=== PATIENT | female | born 1975 | race Two or more races ===

== ENCOUNTER 2022-06-14 18:24 | Emergency (ER) | payer OTHER ==
[~2022-06-14] VITALS: Ht 162.6 cm; Wt 76.2 kg
[~2022-06-14 18:24] MED LIST: CIMBALTA PO; CYMBALTA30 MG PO; LAMICTAL100 M1 PO; LAMICTAL100 MG PO; NABUMETONE500 MG PO; PERCOCET 5/3251 TAB PO
[2022-06-14] MEDS ORDERED: COZAAR25 MG PO (19:10)
== END 2022-06-15 01:06 | disposition home or self-care (01) ==
LOC: ER 18:24
DX: I10 Essential (primary) hypertension (principal)

== ENCOUNTER 2023-06-06 12:35 | Emergency (ER) | payer OTHER ==
[~2023-06-06] VITALS: Ht 162.6 cm; Wt 65.8 kg
[~2023-06-06 12:35] MED LIST changes: +COZAAR25 MG PO
[2023-06-06] MEDS ORDERED: LOSARTAN-HCTZ1 EAC2 PO (13:08)
[2023-06-06] MEDS ORDERED: LAMOTRIGINE100 MG (13:09)
[2023-06-06] MEDS ORDERED: NORFLEX100MG PO (18:46)
== END 2023-06-06 19:57 | disposition home or self-care (01) ==
LOC: ER 12:36
DX: R07.89 Other chest pain (principal); R53.81 Other malaise; I10 Essential (primary) hypertension

== ENCOUNTER 2023-06-15 13:54 | Emergency (ER) | payer OTHER ==
[~2023-06-15] VITALS: Ht 162.6 cm; Wt 74.8 kg
[~2023-06-15 13:54] MED LIST changes: +LAMOTRIGINE100 MG; +LOSARTAN-HCTZ1 EAC2 PO; +NORFLEX100MG PO
[2023-06-15 20:27] LABS: HEMATOCRIT 38.5 % (36.0-45.00); HEMOGLOBIN 13.1 g/dL (12.0-15.00); MEAN CELL VOLUME 96.4 fL (80.00-100.00); MEAN CORPUSCULAR HEMOGLOBIN 32.7 pg (27.00-32.0); PLATELET COUNT 280 K/uL (150-450); RED BLOOD COUNT 3.99 M/uL (4.00-6.00); RED CELL DISTRIBUTION WIDTH 12.8 % (11.5-14.5)
== END 2023-06-15 23:52 | disposition home or self-care (01) ==
LOC: ER 13:55
PROVIDERS: General Practice
DX: M94.0 Chondrocostal junction syndrome [Tietze] (principal); F41.9 Anxiety disorder, unspecified; I10 Essential (primary) hypertension

== ENCOUNTER 2025-03-28 09:51 | Emergency (ER) | payer OTHER ==
[~2025-03-28] VITALS: Ht 162.6 cm; Wt 74.8 kg
[2025-03-28] MEDS ORDERED: DULOXETINE HCL30 MG PO (10:06)
[2025-03-28] MEDS ORDERED: KETOROLAC TROMETHAMINE 30 MG VIAL IU ONE (10:45)
[2025-03-28] MEDS ORDERED: DEXAMETHASONE SODIUM PHOSP/PF 10 MG/ML VIAL IV ONE (10:45)
[2025-03-28] MEDS ORDERED: ORPHENADRINE CITRATE 30 MG/ML AMPUL IV ONE (10:45)
[2025-03-28] MEDS ORDERED: 0.9 % SODIUM CHLORIDE 1,000 ML IV ONE (10:45)
[2025-03-28 13:21] LABS: BASO % 0.2 % (0.1-1.2); EOS # 0.00 (0.04-0.54); EOS % 0.0 % (0.7-7.0); LYMPH # 1.71 (1.18-3.74); LYMPH % 13.2 % (19.3-53.1); MEAN PLATELET VOLUME 10.80 fl (9.4-12.4); MONO # 0.88 (0.24-0.82); MONO % 6.8 % (4.7-12.5); NEUT # 10.27 (1.56-6.13); NEUT % 79.3 % (34.0-71.1); RED CELL DISTRIBUTION WIDTH 12.1 % (11.6-14.4)
[2025-03-28 13:43] LABS: ALT/SGPT 20.0 U/L (12-78); AST/SGOT 11.0 U/L (15-37); BILIRUBIN TOTAL 0.49 mg/dL (0.3-1.2); BUN CREA RATIO 14.0 (7.0-25.0); CREATININE SERUM 0.64 mg/dL (0.55-1.02); GFR 99.47; GLOBULINA 3.5 G/DL (2.4-3.5); GLUCOSE FASTING 91.0 mg/dL (65-100); OSMOLALITY SERUM 281.0 MOSM/KG (275-295)
[2025-03-28 15:36] LABS: URINE APPEARANCE Cloudy; URINE BILIRRUBIN Negative (NEGATIVE); URINE BLOOD Negative; URINE COLOR Yellow; URINE GLUCOSE Negative (NEGATIVE); URINE KETONE Negative (NEGATIVE); URINE LEUKOCYTE Large; URINE NITRATE Negative; URINE PROTEIN Trace (NEGATIVE); URINE UROBILINOGEN 1.0 E.U./dl
[2025-03-28 15:41] LABS: URINE BACTERIA 5150.2 uL (0.0-1933); URINE CAST 2.19 uL (0.0-1.40); URINE EPITHELIAL CELLS 69.9 uL (0.0-38.8); URINE RBC 10.4 uL (0.0-20.8); URINE WBC 533.2 uL (0.0-23.2)
[2025-03-28 16:36] LABS: TYPE CELLS SQUAMOUS
[2025-03-28] MEDS ORDERED: CEFTRIAXONE SODIUM 1,000 MG VIAL IV ONE (18:00)
[2025-03-28] MEDS ORDERED: PEPCID AC20 MG PO (20:06)
[2025-03-28] MEDS ORDERED: MACROBID 100 M100 MG PO (20:06)
[2025-03-28] MEDS ORDERED: IBU600 MG PO (20:06)
[2025-03-28] MEDS ORDERED: PYRIDIUM200 MG PO (20:06)
[2025-03-28] MEDS ORDERED: ACETAMINOPHEN 500 MG GEL..CAP PO ONE (20:15)
[2025-03-28] MEDS ORDERED: ORPHENADRINE CITRATE 30 MG/ML AMPUL IM ONE (20:15)
== END 2025-03-28 21:55 | disposition home or self-care (01) ==
LOC: ER 09:51
PROVIDERS: General Practice
DX: N83.209 Unspecified ovarian cyst, unspecified side (principal); M54.50 Low back pain, unspecified; I10 Essential (primary) hypertension
CPT/HCPCS: 36415; 74177; Q9965